=== PATIENT | male | born 1985 | race Hispanic/Latino ===

== ENCOUNTER 2021-11-13 02:12 | Emergency (ER) | payer OTHER ==
[2021-11-13] MEDS ORDERED: NA CHLORIDE 0.9% 1,000 ML ONE (03:17)
[2021-11-13] MEDS ORDERED: ONDANSETRON 4 MG/2 ML VIAL ONE (03:17)
[2021-11-13] MEDS ORDERED: KETOROLAC 30 MG/ML INJ ONE (03:17)
[2021-11-13] MEDS ORDERED: Levofloxacin 750mg IV 750 MG/150 ML BAG IV ONE (03:33)
[2021-11-13 03:46] LABS: Absolute Lymphocytes (CBC) 1.7 K/uL (0.7-4.9); Hematocrit 40.7 % (39.6-49.0); MCV 87.7 fL (80-100); MPV 8.3 fL (7.6-11.3); RBC Red Blood Cell Count 4.64 M/uL (4.33-5.43)
--- NOTE | 2021-11-13 03:51 | ER ---
Nurse's Notes [facility] Name: Fidencio Mckeon Age: 36 yrs Sex: Male : 1985 Arrival Date: 11/13/2021 Time: 02:21 Bed 5 Private MD: Diagnosis: Hydrocele, unspecified;Epididymo-orchitis;Epididymitis Presentation: 11/13 02:44 Chief complaint: Patient states: right groin pain x 1 week pain increasingly worse kl noted testicular swelling as well. Coronavirus screen: Vaccine status: Patient reports receiving the 2nd dose of the covid vaccine. Ebola Screen: Patient negative for fever greater than or equal to 101.5 degrees Fahrenheit, and additional compatible Ebola Virus Disease symptoms. Initial Sepsis Screen: Does the patient meet any 2 criteria? No. Patient's initial sepsis screen is negative. Does the patient have a suspected source of infection? No. Patient's initial sepsis screen is negative. Risk Assessment: Do you want to hurt yourself or someone else? Patient reports no desire to harm self or others. Onset of symptoms was November 05, 2021. 02:44 Method Of Arrival: Ambulatory kl 02:44 Acuity: ELVIA 3 kl Triage Assessment: 02:49 General: Appears uncomfortable, Behavior is calm, cooperative. Pain: Complains of pain kl in right femoral area Pain currently is 6 out of 10 on a pain scale. at worst was 10 out of 10 on a pain scale. GI: Reports. : No signs and/or symptoms were reported regarding the genitourinary system. Historical: - Allergies: 02:47 No Known Allergies; kl - Home Meds: 02:47 losartan 50 mg oral tab once daily [Active]; Norvasc 5 mg Oral tab 1 tab once daily kl [Active]; finasteride 1 mg oral tab 1 tab once daily [Active]; Adderall XR 20 mg Oral cp24 [Active]; - PMHx: 02:47 Hypertensive disorder; ADHD; kl - Immunization history:: Adult Immunizations up to date. - Social history:: Smoking status: Patient denies any tobacco usage or history of. Screenin:18 Abuse screen: Denies threats or abuse. Denies injuries from another. Abuse screen: tw5 Denies threats or abuse. Nutritional screening: No deficits noted. Tuberculosis screening: No symptoms or risk factors identified. Fall Risk None identified. Assessment: 03:03 General: Reports "I had swelling in my right testicle that started last week, the tw5 swelling has gone down some but now I am having pain that is traveling up into my abdomen.". Pain: Complains of pain in right lower quadrant, groin, right femoral area and right inguinal area Pain currently is 7 out of 10 on a pain scale. Neuro: No deficits noted. Cardiovascular: No deficits noted. Respiratory: No deficits noted. GI: Bowel sounds present X 4 quads. Abd is non tender. : Reports scrotal pain. 04:11 Reassessment: WAITING ON LEVAQUIN INFUSION BEFORE DISCHARGE. ke1 Vital Signs: 02:44 BP 165 / 105; Pulse 89; Resp 18; Temp 97.9(TE); Pulse Ox 100% ; Weight 83.91 kg (R); kl Height 5 ft. 8 in. (172.72 cm); Pain 6/10; 03:03 BP 154 / 117; Pulse 89; Resp 18; Pulse Ox 100% on R/A; tw5 02:44 Body Mass Index 28.13 (83.91 kg, 172.72 cm) ED Course: 02:21 Patient arrived in ED. bp1 02:47 Triage completed. 02:55 Angelina Zhao is Primary Nurse. tw5 02:57 Axel Laurent MD is Attending Physician. [facility] 03:17 CBC with Diff Sent. tw5 03:17 CMP Sent. tw5 03:17 Lipase Sent. tw5 03:18 Awaiting lab results. tw5 03:18 Initial lab(s) drawn, by nj, sent to lab. Inserted saline lock: 20 gauge in right tw5 antecubital area, using aseptic technique. Blood collected. 03:18 No provider procedures requiring assistance completed. tw5 03:18 Patient has correct armband on for positive identification. Bed in low position. Call tw5 light in reach. Side rails up X 1. Pulse ox on. NIBP on. Door closed. Noise minimized. Moved to private room. Warm blanket given. Verbal reassurance given. 03:44 Scrotum Testicles In Process Unspecified. EDMS 03:50 Arsen Acosta MD is Referral Physician. jean-paul 04:47 IV discontinued. ke1 Administered Medications: 03:06 CANCELLED (Other Intervention Used): NS 0.9% 500 ml IV at bolus once tw5 03:17 Drug: NS 0.9% 1000 ml Route: IV; Rate: 1 bolus; Site: right antecubital; tw5 04:48 Follow up: IV Status: Completed infusion ke1 03:17 Drug: Zofran (Ondansetron) 4 mg Route: IVP; Site: right antecubital; tw5 03:17 Drug: Ketorolac 30 mg Route: IVP; Site: right antecubital; tw5 03:28 Drug: levofloxacin 750 mg Volume: 150 ml; Route: IVPB; Infused Over: 90 mins; Site: tw5 right antecubital; 04:47 Follow up: Response: No adverse reaction; IV Status: Completed infusion ke1 Medication: 03:18 VIS not applicable for this client. Outcome: 03:51 Discharge ordered by MD. jeong 04:46 Discharged to home ambulatory. ke1 04:46 Condition: good 04:46 Discharge instructions given to patient. 04:48 Patient left the ED. ke1 Signatures: Dispatcher [employer] Linda Kay, Axel Coffman RN, MD MD cha Paniauga, Brittany bp1 Wood, Tiffany tw5 Blanca Kelley RN RN ke1
--- NOTE | 2021-11-13 03:51 | EDPHYS ---
Physician Documentation [facility] Name: Fidencio Mckeon Age: 36 yrs Sex: Male : 1985 Arrival Date: 11/13/2021 Time: 02:21 Bed 5 Private MD: ED Physician Axel Laurent HPI: 11/13 03:45 This 36 yrs old Male presents to ER via Ambulatory with complaints of jean-paul Abdominal Pain. 03:45 The patient presents with swelling, of the right testicle. Onset: The symptoms/episode jean-paul began/occurred 5 day(s) ago. Modifying factors: The symptoms are alleviated by remaining still, the symptoms are aggravated by movement, pressure. Associated signs and symptoms: The patient has no apparent associated signs or symptoms. Severity of symptoms: At their worst the symptoms were mild, in the emergency department the symptoms have resolved. The patient has not experienced similar symptoms in the past. Historical: - Allergies: 02:47 No Known Allergies; kl - Home Meds: 02:47 losartan 50 mg oral tab once daily [Active]; Norvasc 5 mg Oral tab 1 tab once daily kl [Active]; finasteride 1 mg oral tab 1 tab once daily [Active]; Adderall XR 20 mg Oral cp24 [Active]; - PMHx: 02:47 Hypertensive disorder; ADHD; kl - Immunization history:: Adult Immunizations up to date. - Social history:: Smoking status: Patient denies any tobacco usage or history of. ROS: 03:46 Constitutional: Negative for fever, chills, and weight loss, Eyes: Negative for injury, jean-paul pain, redness, and discharge, ENT: Negative for injury, pain, and discharge, Neck: Negative for injury, pain, and swelling, Cardiovascular: Negative for chest pain, palpitations, and edema, Respiratory: Negative for shortness of breath, cough, wheezing, and pleuritic chest pain, Abdomen/GI: Negative for abdominal pain, nausea, vomiting, diarrhea, and constipation, Back: Negative for injury and pain, : Negative for injury, bleeding, discharge, and swelling, MS/Extremity: Negative for injury and deformity, Skin: Negative for injury, rash, and discoloration, Neuro: Negative for headache, weakness, numbness, tingling, and seizure. Exam: 03:46 Constitutional: This is a well developed, well nourished patient who is awake, alert, jean-paul and in no acute distress. Head/Face: Normocephalic, atraumatic. Eyes: Pupils equal round and reactive to light, extra-ocular motions intact. Lids and lashes normal. Conjunctiva and sclera are non-icteric and not injected. Cornea within normal limits. Periorbital areas with no swelling, redness, or edema. ENT: Nares patent. No nasal discharge, no septal abnormalities noted. Tympanic membranes are normal and external auditory canals are clear. Oropharynx with no redness, swelling, or masses, exudates, or evidence of obstruction, uvula midline. Mucous membranes moist. Neck: Trachea midline, no thyromegaly or masses palpated, and no cervical lymphadenopathy. Supple, full range of motion without nuchal rigidity, or vertebral point tenderness. No Meningismus. Chest/axilla: Normal chest wall appearance and motion. Nontender with no deformity. No lesions are appreciated. Cardiovascular: Regular rate and rhythm with a normal S1 and S2. No gallops, murmurs, or rubs. Normal PMI, no JVD. No pulse deficits. Respiratory: Lungs have equal breath sounds bilaterally, clear to auscultation and percussion. No rales, rhonchi or wheezes noted. No increased work of breathing, no retractions or nasal flaring. Abdomen/GI: Soft, non-tender, with normal bowel sounds. No distension or tympany. No guarding or rebound. No evidence of tenderness throughout. Back: No spinal tenderness. No costovertebral tenderness. Full range of motion. Skin: Warm, dry with normal turgor. Normal color with no rashes, no lesions, and no evidence of cellulitis. MS/ Extremity: Pulses equal, no cyanosis. Neurovascular intact. Full, normal range of motion. Neuro: Awake and alert, GCS 15, oriented to person, place, time, and situation. Cranial nerves II-XII grossly intact. Motor strength 5/5 in all extremities. Sensory grossly intact. Cerebellar exam normal. Normal gait. Psych: Awake, alert, with orientation to person, place and time. Behavior, mood, and affect are within normal limits. 03:46 : CVA tenderness, is absent, Male external genitalia: Circumcision noted. swelling: tenderness, is palpated in the right inguinal area, Bladder: is normal, Sexual behavior: the patient is sexually active, and reports a single partner. Vital Signs: 02:44 BP 165 / 105; Pulse 89; Resp 18; Temp 97.9(TE); Pulse Ox 100% ; Weight 83.91 kg (R); kl Height 5 ft. 8 in. (172.72 cm); Pain 6/10; 03:03 BP 154 / 117; Pulse 89; Resp 18; Pulse Ox 100% on R/A; tw5 02:44 Body Mass Index 28.13 (83.91 kg, 172.72 cm) kl MDM: 02:57 Patient medically screened. [facility] 03:47 Differential diagnosis: nonspecific abdominal pain, prostatitis, urethritis. Data [facility] reviewed: vital signs, nurses notes, lab test result(s), radiologic studies, ultrasound. Data interpreted: language path: rate is 89 beats/min, rhythm is regular, Pulse oximetry: on room air is 100 %. Counseling: I had a detailed discussion with the patient and/or guardian regarding: the historical points, exam findings, and any diagnostic results supporting the discharge/admit diagnosis, lab results, radiology results, the need for outpatient follow up, for definitive care, a urologist. 11/13 02:58 Order name: CBC with Diff [facility] 11/13 02:58 Order name: CMP [facility] 11/13 02:58 Order name: Lipase [facility] 11/13 02:58 Order name: US Scrotum Testicles [facility] 11/13 02:58 Order name: IV Saline Lock; Complete Time: 03:17 [facility] 11/13 02:58 Order name: Labs collected and sent; Complete Time: 03:17 [facility] Administered Medications: 03:06 CANCELLED (Other Intervention Used): NS 0.9% 500 ml IV at bolus once tw5 03:17 Drug: NS 0.9% 1000 ml Route: IV; Rate: 1 bolus; Site: right antecubital; tw5 04:48 Follow up: IV Status: Completed infusion ke1 03:17 Drug: Zofran (Ondansetron) 4 mg Route: IVP; Site: right antecubital; tw5 03:17 Drug: Ketorolac 30 mg Route: IVP; Site: right antecubital; tw5 03:28 Drug: levofloxacin 750 mg Volume: 150 ml; Route: IVPB; Infused Over: 90 mins; Site: tw5 right antecubital; 04:47 Follow up: Response: No adverse reaction; IV Status: Completed infusion ke1 Disposition Summary: 11/13/21 03:51 Discharge Ordered Location: Home [facility] Problem: new jean-paul Symptoms: have improved jean-paul Condition: Stable jean-paul Diagnosis - Hydrocele, unspecified jean-paul - Epididymo-orchitis jean-paul - Epididymitis jean-paul Followup: jean-paul - With: Private Physician - When: 2 - 3 days - Reason: Recheck today's complaints, Continuance of care, Re-evaluation by your physician Followup: jean-paul - With: Arsen Acosta MD - When: 2 - 3 days - Reason: Recheck today's complaints, Re-evaluation by your physician Discharge Instructions: - Discharge Summary Sheet jean-paul - Epididymitis jean-paul - Orchitis jean-paul - Testicular Self-Exam jean-paul - Hydrocele, Adult jean-paul - Testicular Self-Exam, [id number] [facility] Forms: - Medication Reconciliation Form [facility] - Thank You Letter [facility] - Antibiotic Education [facility] - Prescription Opioid Use [facility] Prescriptions: - Ibuprofen 600 mg Oral Tablet - take 1 tablet by ORAL route every 6 hours As needed take with food; 30 tablet; [facility] Refills: 0, Product Selection Permitted - levofloxacin 750 mg Oral Tablet - take 1 tablet by ORAL route once daily; 10 tablet; Refills: 0, Product [facility] Selection Permitted - Tylenol-Codeine #3 300 mg-30 mg Oral - take 2 tablet by ORAL route every 6 hours; 20 tablet; Refills: 0, Product [facility] Selection Permitted Signatures: Dispatcher [employer] Linda Kay RN RN kl Anderson, Corey, MD MD cha Wood, Tiffany tw5 Blanca Kelley RN ke1 Corrections: (The following items were deleted from the chart) 03:06 02:58 NS 0.9% 500 ml IV at bolus once ordered. [facility] tw5
[2021-11-13 04:09] LABS: Albumin 3.3 g/dL (3.4-5.0); Bilirubin Total 0.6 mg/dL (0.2-1.0); Potassium 3.7 mmol/L (3.5-5.1); Protein, Total 7.6 g/dL (6.4-8.2)
[2021-11-13 05:05] VITALS: TEMP 97.9; O2SAT 100
[2021-11-13 05:10] VITALS: BP 154/117
--- NOTE | 2021-11-13 15:20 | RAD REPORT ---
EXAM DESCRIPTION: US - Scrotum Testicles - 11/13/2021 3:42 am CLINICAL HISTORY: 36 years, Male, ABD PAIN COMPARISON: None. FINDINGS: Multiple grayscale images of the testicles were performed. Color Doppler imaging was used to assess vascular flow. The right testicle measures 4.7 x 2.9 x 3.3 cm, the right epididymis measured 3 x 1.3 cm. There is a epididymal head cyst measuring 0.3 x 0.3 x 0.3 cm. There is heterogeneous appearance of the right katarzyna ticle. There is prominence of the right epididymis. There is a moderate hydrocele. There is slight in crease vascularity within the right testicle. The left testicle measured 3.9 x 2.4 x 2.3 cm, the left epididymis measured 1.0 x 0.8 cm. There is no rmal vascular flow. There is no evidence for hydrocele/or varicocele. IMPRESSION: Findings compatible with right epididymoorchitis. Right hydrocele. Right epididymal head cyst. Electronically signed by: Cal Weber MD 11/13/2021 4:00 AM CDT Due to temporary technical issues with the PACS/Fluency reporting system, reports are being signed by the in house radiologists without review as a courtesy to insure prompt reporting. The interpreting radiologist is fully responsible for the content of the report.
== END 2021-11-13 04:48 | disposition home or self-care (01) ==
LOC: ER 02:12
DX: N43.3 Hydrocele, unspecified (principal); N45.3 Epididymo-orchitis; N45.1 Epididymitis; I10 Essential (primary) hypertension; F90.9 Attention-deficit hyperactivity disorder, unspecified type
CPT/HCPCS: 96365; 85025; 36415; 83690; 80053; 76870; 96375; 99284; J7030; J2405